=== PATIENT | female | born 1975 | race Caucasian/White ===

== ENCOUNTER → 2024-01-22 19:05 | Outpatient (REF) | payer BC, SELFPAY | LOC: WDC 19:05 | PROVIDERS: ATTENDING PHYSICIAN Internal Medicine | DX: Z12.31 Encounter for screening mammogram for malignant neoplasm of breast (principal) | CPT/HCPCS: 77063; 77067 ==

== ENCOUNTER → 2024-02-01 08:30 | Outpatient (REF) | payer BC, SELFPAY | LOC: WDC 08:30 | PROVIDERS: ATTENDING PHYSICIAN Internal Medicine | DX: R92.8 Other abnormal and inconclusive findings on diagnostic imaging of breast (principal) | CPT/HCPCS: 76642 ==

== ENCOUNTER → 2025-01-22 17:52 | Outpatient (REF) | payer BC, SELFPAY | LOC: WDC 17:52 | PROVIDERS: ATTENDING PHYSICIAN Student in an Organized Health Care Education/Training Program | DX: Z12.31 Encounter for screening mammogram for malignant neoplasm of breast (principal) | CPT/HCPCS: 77063; 77067 ==

== ENCOUNTER → 2025-04-10 07:54 | Outpatient (REF) | payer BC, SELFPAY | LOC: HWRAD 07:54 | PROVIDERS: FAMILY PHYSICIAN Student in an Organized Health Care Education/Training Program | DX: N93.9 Abnormal uterine and vaginal bleeding, unspecified (principal) | CPT/HCPCS: 76830; 76856 ==